=== PATIENT | male | born 1965 | race Caucasian/White ===

== ENCOUNTER → 2020-04-05 | Outpatient (CLI) | payer OTHER ==
--- NOTE | 2020-04-05 17:00 | Diagnostic Imaging Report ---
INDICATION: Right-sided flank pain and hematuria. TECHNIQUE: Multiple contiguous axial images were obtained through the abdomen and pelvis without the use of intravenous contrast. Auto Exposure Controls were utilized during the CT exam to meet ALARA standards for radiation dose reduction. COMPARISON: There is no previous study for comparison. FINDINGS: The visualized portions of the lung bases show no focal infiltrate. There is no pleural fluid or free intraperitoneal air. The liver shows diffuse low-density change compatible with fatty infiltration. Gallbladder appears normal. The spleen, adrenals, and pancreas appear normal. The left kidney appears normal. The right kidney shows some perinephric edema and hydronephrosis and hydroureter, down to the level of a 5 mm stone in the right distal ureter just above the UVJ. There is no pelvic mass or lymphadenopathy. There are uncomplicated sigmoid diverticuli and descending colon diverticuli. There is no sign of bowel obstruction or focal bowel wall thickening. Patient appears to have prior appendectomy. IMPRESSION: There is right hydronephrosis and perinephric edema, secondary to a 5 mm stone in the right distal ureter just above the UVJ. There is fatty infiltration of the liver. There are uncomplicated colonic diverticuli. Dictated by: Dictated on workstation # [id number]
== END ==
LOC: RAD 16:22
DX: R74.0 Nonspecific elevation of levels of transaminase and lactic acid dehydrogenase [LDH] (principal); N13.30 Unspecified hydronephrosis; K76.0 Fatty (change of) liver, not elsewhere classified; K57.30 Diverticulosis of large intestine without perforation or abscess without bleeding; Z96.0 Presence of urogenital implants
CPT/HCPCS: 74176